=== PATIENT | male | born 1940 | race Caucasian/White ===

== ENCOUNTER 2021-02-21 21:07 | Emergency (ER) | payer OTHER, MEDICARE ==
[~2021-02-21] VITALS: Ht 180.3 cm; Wt 86.2 kg
--- OUTSIDE RECORDS SUMMARY | 2021-02-21 23:18 | XMS ---
PreManage Notification: TERESA VARGAS Security Back Joiner Events No recent Security Events currently on file CRITERIA MET - [facility] CARE PROVIDERS There are no care providers on record at this time. Shira has no Care Guidelines for this patient. Kayla VISIT COUNT ([address] [facility] [place] 1 [facility] TOTAL 2 NOTE: Visits indicate total known visits. ED/C VISIT TRACKING (12 MO.) 02/21/2021 21:08 [facility] OR TYPE: Emergency COMPLAINT: - LT HAND INJURY 07/29/2020 17:44 [facility] TYPE: Emergency DIAGNOSES: - Strain of muscle, fascia and tendon of lower back, initial encounter - Flank Pain - Benign paroxysmal vertigo, unspecified ear - Abdominal aortic aneurysm, without rupture - Nausea, Vertigo INPATIENT VISIT TRACKING (12 MO.) 10/09/2020 07:13 [facility] OR TYPE: Surgery DIAGNOSES: - Unilateral primary osteoarthritis, right knee [email or web address]
[2021-02-22] MEDS ORDERED: AUGMENTIN 875-1 EACH PO (00:31)
== END 2021-02-22 00:43 | disposition home or self-care (01) ==
LOC: ED 21:07
DX: S61.452A Open bite of left hand, initial encounter (principal); W54.0XXA Bitten by dog, initial encounter; Z23 Encounter for immunization; I10 Essential (primary) hypertension
CPT/HCPCS: 12002; 90471; 90715; 99283-25